=== PATIENT | female | born 1945 | race African-American/Black ===

== ENCOUNTER 2022-08-20 12:50 | Emergency (ER) | payer MEDICARE ==
[~2022-08-20] VITALS: Ht 167.6 cm; Wt 101.6 kg
[2022-08-20] MEDS ORDERED: ONDANSETRON HCL INJ 2MG/ML 2ML 2 MG/ML VIAL IV ONE ×2 (13:31→14:15)
[2022-08-20 13:38] LABS: BASOPHILS # (AUTO) 0.1 (0.0-0.1); BASOPHILS % 0.7 % (0.0-1.0); EOSINOPHILS # (AUTO) 0.2 (0.0-0.4); EOSINOPHILS % 1.9 % (0.0-6.0); HEMATOCRIT 35.8 % (34.2-44.1); LYMPHOCYTES # (AUTO) 4.5 (1.0-3.2); LYMPHOCYTES % 41.1 % (18.0-39.1); MEAN CORPUSCULAR HEMOGLOBIN 29.9 pg (28-32); MEAN CORPUSCULAR HGB CONC 33.5 g/dL (31-35); MEAN CORPUSCULAR VOLUME 89.3 fL (81-99); MONOCYTES # (AUTO) 1.1 (0.2-0.8); MONOCYTES % 9.8 % (4.4-11.3); NEUTROPHILS # (AUTO) 5.1 (2.1-6.9); NEUTROPHILS % 46.1 % (38.7-80.0); PLATELET COUNT 260 x10e3/uL (140-360); RED BLOOD COUNT 4.01 x10e6/uL (3.6-5.1)
[2022-08-20] MEDS ORDERED: SODIUM CHLORIDE 0.9% 500ML 500 ML IV ONE ×2 (13:45→14:15)
[2022-08-20 13:49] LABS: INR 0.92; PROTHROMBIN TIME 12.9 seconds (11.9-14.5)
[2022-08-20 13:50] LABS: PARTIAL THROMBOPLASTIN TIME 25.2 seconds (23.8-35.5)
[2022-08-20 14:09] LABS: ALANINE AMINOTRANSFERASE 56 IU/L (0-55); ALBUMIN 3.1 g/dL (3.5-5.0); ALBUMIN/GLOBULIN RATIO 0.8 (0.8-2.0); ALKALINE PHOSPHATASE 105 IU/L (40-150); ANION GAP 12.2 mmol/L (8-16); BLOOD UREA NITROGEN 24 mg/dL (7-26); BUN/CREATININE RATIO 19 (6-25); CALCIUM 9.8 mg/dL (8.4-10.2); CARBON DIOXIDE 20 mmol/L (22-29); CHLORIDE 109 mmol/L (98-107); CREATININE, SERUM 1.24 mg/dL (0.57-1.11); GLUCOSE 251 mg/dL (74-118); MAGNESIUM 1.8 MG/DL (1.3-2.1); SODIUM 136 mmol/L (136-145)
[2022-08-20] MEDS ORDERED: ONDANSETRON HCL INJ 2MG/ML 2ML 2 MG/ML VIAL ONE (14:09)
[2022-08-20 14:10] LABS: POTASSIUM 5.2 mmol/L (3.5-5.1)
[2022-08-20] MEDS ORDERED: SODIUM CHLORIDE 0.9% 500ML 500 ML ONE (14:10)
[2022-08-20] MEDS ORDERED: IOPAMIDOL 370 MG/ML 100 ML INFUS..BTL INJ ONE (14:28)
[2022-08-20 14:34] LABS: LIPASE < 4 U/L (8-78)
[2022-08-20 15:04] LABS: COLOR,URINE YELLOW (YELLOW)
[2022-08-20 15:05] LABS: CLARITY,URINE CLEAR (CLEAR); LEUKOCYTE ESTERASE ,URINE NEGATIVE (NEGATIVE); NITRITE,URINE NEGATIVE (NEGATIVE); PROTEIN,URINE DIPSTICK 2+ (NEGATIVE)
[2022-08-20 15:08] LABS: KETONES,URINE NEGATIVE (NEGATIVE); URINE UROBILINOGEN 0.2 mg/dL (0.2 - 1)
[2022-08-20 15:21] LABS: BACTERIA,URINE FEW /HPF; EPITHELIAL CELLS,URINE FEW /LPF; RBC,URINE 0-5 /HPF (0-5); WBC,URINE (MAN) 0-5 /HPF (0-5)
[2022-08-20] MEDS ORDERED: LEVSIN-SL0.125 MG SL (17:17)
[2022-08-20] MEDS ORDERED: ONDANSETRON ODT4 MG PO (17:17)
[2022-08-20 17:42] VITALS: BP 170/70; PULSE 71; RESP 18; TEMP 98.9; O2SAT 100
== END 2022-08-20 17:39 | disposition home or self-care (01) ==
LOC: ER 12:50
DX: R10.31 Right lower quadrant pain (principal); I10 Essential (primary) hypertension; K21.9 Gastro-esophageal reflux disease without esophagitis; E78.5 Hyperlipidemia, unspecified; Z79.899 Other long term (current) drug therapy
CPT/HCPCS: 36415; 74177; 76705; 80053; 81001; 83690; 83735; 84484; 85025; 85610; 85730; 87086; 99284; C9113; J2405; J7040; Q9967